=== PATIENT | male | born 1975 | race Caucasian/White ===

== ENCOUNTER 2017-04-30 08:28 | Emergency (ER) | payer BC, OTHER ==
[~2017-04-30] VITALS: Ht 175.3 cm; Wt 88.9 kg
[~2017-04-30 08:28] MED LIST: CITA10TA4 PO; LEVO25TA PO; OMEP20CA59 PO
[2017-04-30 08:34] VITALS: TEMP 36.8; Ht 175.3 cm; Wt 88.9 kg
[2017-04-30] MEDS ORDERED: SODIUM CHLORIDE 0.9% 1000ML 1,000 ML IV STA (08:50)
--- NOTE | 2017-04-30 08:53 | EMERGENCY ROOM VISIT NOTE ---
History Report prepared by Victoriano: Zahra Panchal Under the Supervision of: Dr. Gwendolyn Antonio M.D. 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 The patient states that he felt lightheaded when he woke up and when he checked his blood pressure it was 155/117. He reports that he does not take medication for high blood pressure but notes that it was high the last few times that he went to the doctor. He notes that today he was lifting a heavy trailer hitch and suddenly felt weak and lightheaded before coming in today. He denies any heart fluttering , weight loss, dizziness, urinary symptoms, room spinning, chest pain, shortness of breath, recent surgeries, recent long trips, and changes in eating or drinking. The patient reports that his kids were sick with fevers about 1 week ago. Source of History: patient Onset: just OPERATOR Position: other (global) Quality: other (weakness) Timing: other (episode) Associated Symptoms: No SOB, No chest pain, No urinary symptoms Note: Pt complains of lightheadedness. He denies any heart fluttering, weight loss, dizziness, room spinning, recent surgeries, recent long trips, and changes in eating or drinking. Review of Systems See HPI for pertinent positives & negatives. A total of 10 systems reviewed and were otherwise negative. Past Medical & Surgical Medical Problems: (1) Hypercholesterolemia (2) T12 compression fracture Surgical Problems: (1) No significant past surgical history Family History Kidney disease Kidney stones Social History Smoking Status: Never Smoker Alcohol Use: occasionally Marital Status: Housing Status: lives with family Occupation Status: employed Current/Historical Medications Scheduled Citalopram Hydrobromide (Citalopram Hydrobromide), 10 MG PO DAILY Levothyroxine Sodium (Synthroid), 25 MCG PO DAILY Omeprazole (Prilosec), 20 MG PO DAILY Allergies Coded Allergies: Penicillins (Verified Allergy, Unknown, 04/30/17) Physical Exam Vital Signs Date Time Temp Pulse Resp B/P Pulse Ox O2 Delivery O2 Flow Rate FiO2 04/30/17 13:12 76 17 118/85 99 04/30/17 10:56 80 18 118/87 96 Room Air 04/30/17 09:53 82 17 135/97 97 Room Air 04/30/17 08:52 96 129/87 94 134/91 118 127/94 04/30/17 08:48 96 16 129/87 98 Room Air 94 134/91 118 127/94 04/30/17 08:44 118 04/30/17 08:34 36.8 101 18 144/85 98 Room Air Physical Exam Vital signs reviewed. General: Well-appearing, in no significant distress. HEENT: No scleral icterus, PERRLA, neck supple. Atraumatic. Cardiovascular: Regular rate and rhythm, no extra sounds. Pulmonary: Clear to auscultation bilaterally, normal work of breathing. Abdomen: Soft, nontender, nondistended, positive bowel sounds. Musculoskeletal: Atraumatic, no peripheral edema. Neurologic: Patient awake alert and oriented x 3, full strength in all 4 extremities. Cranial nerves 2 through 12 grossly intact. Skin: Warm, dry, no rash Medical Decision & Procedures ER Provider Diagnostic Interpretation: X-ray results as stated below per interpretation by me and the radiologist: CHEST ONE VIEW PORTABLE FINDINGS: Lung volumes are normal. Lungs are clear. There is no pneumothorax or pleural effusion. Cardiac size is normal. Mediastinal contours are normal. There is no evidence of pulmonary edema. IMPRESSION: No acute cardiopulmonary findings. Electronically signed by: Enio Mccoy M.D. 04/30/2017 9:50 AM Dictated Date/Time: 04/30/2017 9:48 AM Laboratory Results 04/30/17 09:00 Red Blood Count 5.79, Mean Corpuscular Volume 80.8, Mean Corpuscular Hemoglobin 28.5, Mean Corpuscular Hemoglobin Concent 35.3, Mean Platelet Volume 9.1, Neutrophils (%) (Auto) 68.2, Lymphocytes (%) (Auto) 20.6, Monocytes (%) (Auto) 7.6, Eosinophils (%) (Auto) 2.6, Basophils (%) (Auto) 0.2, Neutrophils # (Auto) 3.41, Lymphocytes # (Auto) 1.03, Monocytes # (Auto) 0.38, Eosinophils # (Auto) 0.13, Basophils # (Auto) 0.01 04/30/17 09:00 Test 04/30/17 09:00 04/30/17 09:07 04/30/17 09:25 White Blood Count 5.00 K/uL (4.8-10.8) Red Blood Count 5.79 M/uL (4.7-6.1) Hemoglobin 16.5 g/dL (14.0-18.0) Hematocrit 46.8 % (42-52) Mean Corpuscular Volume 80.8 fL (80-100) Mean Corpuscular Hemoglobin 28.5 pg (25-34) Mean Corpuscular Hemoglobin Concent 35.3 g/dl (32-36) Platelet Count 202 K/uL (130-400) Mean Platelet Volume 9.1 fL (7.4-10.4) Neutrophils (%) (Auto) 68.2 % Lymphocytes (%) (Auto) 20.6 % Monocytes (%) (Auto) 7.6 % Eosinophils (%) (Auto) 2.6 % Basophils (%) (Auto) 0.2 % Neutrophils # (Auto) 3.41 K/uL (1.4-6.5) Lymphocytes # (Auto) 1.03 K/uL (1.2-3.4) Monocytes # (Auto) 0.38 K/uL (0.11-0.59) Eosinophils # (Auto) 0.13 K/uL (0-0.5) Basophils # (Auto) 0.01 K/uL (0-0.2) RDW Standard Deviation 38.6 fL (36.4-46.3) RDW Coefficient of Variation 13.1 % (11.5-14.5) Immature Granulocyte % (Auto) 0.8 % Immature Granulocyte # (Auto) 0.04 K/uL (0.00-0.02) D-Dimer < 190 ug/L FEU (0-500) Anion Gap 6.0 mmol/L (3-11) Est Creatinine Clear Calc Drug Dose 97.5 ml/min Estimated GFR () 96.1 Estimated GFR (Non- 82.9 BUN/Creatinine Ratio 13.0 (10-20) Calcium Level 9.0 mg/dl (8.5-10.1) Magnesium Level 2.1 mg/dl (1.8-2.4) Total Bilirubin 0.6 mg/dl (0.2-1) Direct Bilirubin < 0.1 mg/dl (0-0.2) Aspartate Amino Transf (AST/SGOT) 17 U/L (15-37) Alanine Aminotransferase (ALT/SGPT) 32 U/L (12-78) Alkaline Phosphatase 66 U/L (45-117) Total Creatine Kinase 87 U/L (39-308) Creatine Kinase MB < 0.5 ng/ml (0.5-3.6) Creatine Kinase MB Ratio (0-3.0) Total Protein 7.4 gm/dl (6.4-8.2) Albumin 4.0 gm/dl (3.4-5.0) Thyroid Stimulating Hormone (TSH) 2.470 uIu/ml (0.300-4.500) Bedside Troponin I 0.000 ng/ml (0-0.045) Urine Color YELLOW Urine Appearance CLEAR (CLEAR) Urine pH 7.0 (4.5-7.5) Urine Specific Dunbar 1.007 (1.000-1.030) Urine Protein NEG (NEG) Urine Glucose (UA) NEG (NEG) Urine Ketones NEG (NEG) Urine Occult Blood NEG (NEG) Urine Nitrite NEG (NEG) Urine Bilirubin NEG (NEG) Urine Urobilinogen NEG (NEG) Urine Leukocyte Esterase NEG (NEG) Urine Opiates Screen NEG (NEG) Urine Methadone, Qualitative NEG (NEG) Urine Barbiturates NEG (NEG) Urine Phencyclidine (PCP) Level NEG (NEG) Ur Amphetamine/Methamphetamine NEG (NEG) MDMA (Ecstasy) Screen NEG (NEG) Urine Benzodiazepines Screen NEG (NEG) Urine Cocaine Metabolite NEG (NEG) Urine Marijuana (THC) NEG (NEG) Laboratory results per my review. Medications Administered Medications (Trade) Dose Ordered Sig/Mary Jo Route Start Time Stop Time Status Last Admin Dose Admin Sodium Chloride (Nss 1000ml) 1,000 ml @ 999 mls/hr Q1H1M STAT IV 04/30/17 08:50 04/30/17 09:50 DC 04/30/17 09:07 999 MLS/HR ECG Indication: weakness Rate (beats per minute): 93 Rhythm: normal sinus Findings: no acute ischemic change, no ectopy ED Course 0839: Past medical records reviewed. The patient was evaluated in room B12B. A complete history and physical examination was performed. 0850: Sodium Chloride 1000 ml @ 999 mls/hr IV. 1240: I reevaluated and updated the patient. 1246: Upon reevaluation, the patient appeared to have improvement of his symptoms. I discussed findings with the patient. He verbalized agreement of the treatment plan. The patient was discharged home. Medical Decision Differential diagnosis: Etiologies such as metabolic, infection, hypo/hyperglycemia, electrolyte abnormalities, cardiac sources, intracerebral event, toxicologic, neurologic, as well as others were entertained. Medication Reconciliation: I attest that I have personally reviewed the patient' s current medication list. Blood Pressure Screening: Patient was found to have a slightly elevated blood pressure but it was resolved. This patient was evaluated and appeared to be in no significant distress. Physical examination is fairly unrevealing. Patient's laboratory work reveals no significant abnormalities. Patient was hydrated with normal saline solution. His heart rate return to normal. EKG reveals no evidence of dysrhythmia or acute ischemia. The etiology of the patient's weakness is unclear, he may be dehydrated. Patient was encouraged to drink plenty of fluids. He will follow-up with his physician this week for reevaluation return to the ER for worsening of symptoms or any medical concerns. Impression Primary Impression: Generalized weakness Scribe Attestation The scribe's documentation has been prepared under my direction and personally reviewed by me in its entirety. I confirm that the note above accurately reflects all work, treatment, procedures, and medical decision making performed by me. Departure Information Dispostion Home / Self-Care Referrals No Doctor, Assigned (PCP) Forms HOME CARE DOCUMENTATION FORM, IMPORTANT VISIT INFORMATION Patient Instructions My [facility] Additional Instructions Diagnosis: Generalized weakness Drink plenty of clear fluids. Follow-up with your physician this week for reevaluation and consideration of further cardiac testing as indicated. Return to the emergency department for worsening of symptoms or any medical concerns.
[2017-04-30 09:11] LABS: BASO % 0.2 %; BASO ABS # 0.01 K/uL (0-0.2); COMPLETE YES; EOS % 2.6 %; HEMATOCRIT 46.8 % (42-52); IG% 0.8 %; LYMPH % 20.6 %; LYMPH ABS # 1.03 K/uL (1.2-3.4); MEAN CELL VOLUME 80.8 fL (80-100); MEAN CORPUSCULAR HEMOGLOBIN 28.5 pg (25-34); MEAN CORPUSCULAR HGB CONC 35.3 g/dl (32-36); MEAN PLATELET VOLUME 9.1 fL (7.4-10.4); MONO % 7.6 %; NEUT % 68.2 %; PLATELET COUNT 202 K/uL (130-400); RED BLOOD COUNT 5.79 M/uL (4.7-6.1)
[2017-04-30 09:27] LABS: ALT/SGPT 32 U/L (12-78); BLOOD UREA NITROGEN 14 mg/dl (7-18); CARBON DIOXIDE 28 mmol/L (21-32); CHLORIDE 105 mmol/L (98-107); GLUCOSE 95 mg/dl (70-99); MAGNESIUM 2.1 mg/dl (1.8-2.4); SODIUM 139 mmol/L (136-145)
[2017-04-30 09:38] LABS: ALKALINE PHOSPHATASE 66 U/L (45-117); AST/SGOT 17 U/L (15-37)
--- NOTE | 2017-04-30 09:52 | DIAGNOSTIC IMAGING REPORT ---
CHEST ONE VIEW PORTABLE CLINICAL HISTORY: Weakness. Lightheadedness. COMPARISON STUDY: No previous studies for comparison. FINDINGS: Lung volumes are normal. Lungs are clear. There is no pneumothorax or pleural effusion. Cardiac size is normal. Mediastinal contours are normal. There is no evidence of pulmonary edema. IMPRESSION: No acute cardiopulmonary findings. Electronically signed by: Enio Mccoy M.D. 04/30/2017 9:50 AM Dictated Date/Time: 04/30/2017 9:48 AM
[2017-04-30 10:23] LABS: BENZODIAZEPINE, URINE NEG (NEG); COCAINE,URINE NEG (NEG); PHENCYCLIDINE, URINE NEG (NEG)
[2017-04-30 10:47] LABS: URINE APPEARANCE CLEAR (CLEAR); URINE BILIRUBIN NEG (NEG); URINE COLOR YELLOW; URINE NITRITE NEG (NEG); URINE SPECIFIC GRAVITY 1.007 (1.000-1.030); UROBILINOGEN NEG (NEG); ZZUR CULT IF INDIC CLEAN CATCH NO
[2017-04-30 10:53] LABS: MANUAL MICROSCOPIC REQUIRED? NO; REVIEW REQ? NO
[2017-04-30 13:12] VITALS: BP 118/85; PULSE 76; O2SAT 99
== END 2017-04-30 13:10 | disposition home or self-care (01) ==
LOC: C.EDB 08:31
DX: R53.1 Weakness (principal); E78.00 Pure hypercholesterolemia, unspecified; Z87.81 Personal history of (healed) traumatic fracture; Z79.899 Other long term (current) drug therapy; Z88.0 Allergy status to penicillin; Z84.1 Family history of disorders of kidney and ureter